=== PATIENT | female | born 1985 | race Hispanic/Latino ===

== ENCOUNTER 2018-08-25 12:36 | Inpatient (IN) | payer BC ==
[2018-08-25] MEDS ORDERED: Sodium Chloride 0.9% 1,000 ML IV STA (13:13)
[2018-08-25] MEDS ORDERED: DiphenhydrAMINE 50 mg/ml Inj IV STA (13:24)
--- NOTE | 2018-08-25 13:28 | ED PDOC ---
HPI: Abdomen Time Seen by Provider: 08/25/18 13:10 Chief Complaint (Nursing): Abdominal Pain Chief Complaint (Provider): Abd pain History Per: Patient History/Exam Limitations: no limitations Onset/Duration Of Symptoms: Days (3) Additional Complaint(s): Pt. with abdominal pain epigastric. States it feels like her esophageal spasms. Nausea, vomit, nonbloody with it. No lower abd pain, back pain, chest pain, dyspnea, diarrhea, weakness, headaches. No dizziness. New to the area and has no pcp. Had botox injections to her esophagus and dilation of it from her GI doctor in [place]. Takes multiple meds for her symptoms at home. Benadryl, nusenta, zofran, seroquel, lexapro. States dilaudid, benadryl, and zofran together work when she gets flair ups. Past Medical History Reviewed: Nursing Documentation, Vital Signs Vital Signs: Last Vital Signs Temp 98.3 F 08/25/18 13:05 Pulse 107 H 08/25/18 13:05 Resp 20 08/25/18 13:05 BP 125/82 08/25/18 13:05 Pulse Ox 100 08/25/18 13:05 - Medical History PMH: Pancreatitis Other PMH: biliary disease; esophageal spasms - Surgical History Surgical History: Endoscopy Other surgeries: esophageal dilation and botox injections to it - Family History Family History: States: Unknown Family Hx - Living Arrangements Living Arrangements: With Family - Allergies Allergies/Adverse Reactions: Allergies Allergy/AdvReac Type Severity Reaction Status Date / Time metoclopramide [From Reglan] Allergy RASH Verified 08/25/18 13:05 moxifloxacin [From Avelox] Allergy RASH Verified 08/25/18 13:05 nitrofurantoin Allergy RASH Verified 08/25/18 13:05 Penicillins Allergy SWELLING Verified 08/25/18 13:05 prochlorperazine Allergy RASH Verified 08/25/18 13:05 [From Compazine] Sulfa (Sulfonamide Allergy RASH Verified 08/25/18 13:05 Antibiotics) Review of Systems ROS Statement: Except As Marked, All Systems Reviewed And Found Negative Gastrointestinal: Positive for: Nausea, Vomiting, Abdominal Pain Physical Exam - Reviewed Nursing Documentation Reviewed: Yes Vital Signs Reviewed: Yes - Physical Exam Appears: Positive for: Non-toxic, No Acute Distress Head Exam: Positive for: ATRAUMATIC, NORMAL INSPECTION, NORMOCEPHALIC Skin: Positive for: Normal Color, Warm, DRY Eye Exam: Positive for: EOMI, Normal appearance, PERRL ENT: Positive for: Normal ENT Inspection Neck: Positive for: Normal, Painless ROM Cardiovascular/Chest: Positive for: Regular Rate, Rhythm Respiratory: Positive for: CNT, Normal Breath Sounds Gastrointestinal/Abdominal: Positive for: Soft, Tenderness (epigastric) Back: Positive for: Normal Inspection. Negative for: L CVA Tenderness, R CVA Tenderness Extremity: Positive for: Normal ROM. Negative for: Tenderness Neurologic/Psych: Positive for: Alert, Oriented - Laboratory Results Result Diagrams: 08/25/18 13:50 08/25/18 13:50 Interpretation Of Abn Labs: no acute - ECG O2 Sat by Pulse Oximetry: 100 Pulse Ox Interpretation: Normal - Progress ED Course And Treament: 1448: Dr. Tiwari to take over care. Fu on ct. Disposition - Clinical Impression Clinical Impression: Abdominal pain - Patient ED Disposition Is Patient to be Admitted: Transfer of Care - Disposition Disposition: Transfer of Care Disposition Time: 14:48 Condition: STABLE Patient Signed Over To: Dianelys Tiwari
[2018-08-25] MEDS ORDERED: DiphenhydrAMINE 50 mg/ml Inj ONE (13:55)
[2018-08-25 14:03] LABS: BASO % 0.7 % (0.0-2.0); HEMOGLOBIN 14.6 g/dL (12.0-16.0); LYMPH # 2.3 K/uL (1.0-4.3); LYMPH % 31.7 % (20.0-40.0); MEAN CELL VOLUME 85.2 fl (81.0-99.0); MEAN CORPUSCULAR HEMOGLOBIN 30.1 pg (27.0-31.0); MEAN CORPUSCULAR HGB CONC 35.4 g/dL (33.0-37.0); MONO # 0.4 K/uL (0.0-0.8); MONO % 5.5 % (0.0-10.0); NEUT # 4.4 K/uL (1.8-7.0); NEUT % 62.1 % (50.0-75.0); NRBC % 0.3 % (0.0-0.0); RBC 4.85 Mil/uL (3.80-5.20); WHITE BLOOD COUNT 7.2 K/uL (4.8-10.8)
[2018-08-25 14:08] LABS: ALB/GLOB RATIO 1.2 (1.0-2.1); ALBUMIN 4.6 g/dL (3.5-5.0); ALT/SGPT 45 U/L (9-52); AST/SGOT 28 U/L (14-36); BLOOD UREA NITROGEN 15 mg/dl (7-17); CALCIUM 10.5 mg/dL (8.4-10.2); GFR NON-AFRICAN AMERICAN > 60; LIPASE 131 U/L (23-300)
[2018-08-25 14:13] LABS: INR 1.1; PROTHROMBIN TIME 12.1 Seconds (9.8-13.1)
[2018-08-25 14:16] LABS: PARTIAL THROMBOPLASTIN TIME 34.3 Seconds (25.6-37.1)
--- NOTE | 2018-08-25 15:19 | ED PDOC ---
- Laboratory Results Result Diagrams: 08/25/18 13:50 08/25/18 13:50 - ECG O2 Sat by Pulse Oximetry: 100 Medical Decision Making Medical Decision Making: Time: 15:00 Patient was endorsed to me by Dr. Maguire. Follow up for abdominal pain pending CT scan, reassessment and final ER disposition. 330p Pt requesting more medication for pain. Reviewed pt's file with [facility] Narcotic database. Pt has multiple narcotic prescriptions from [place], and appears to follow at with pain management. Last prescribed Nucynta 100mg 180 tablets 08/05/2018. To avoid furthering any dependence on opioids and worsening her general health, will only order non- opioid medications. Advised patient concerning narcotic pain policy as well. Time: 15:[address] FINDINGS: LOWER THORAX: Minimal subsegmental atelectasis in the right middle lobe and right lateral lung base. The visualized left lung is clear. LIVER: Normal in size and diffuse fatty liver. There is homogeneous enhancement. Mild intrahepatic biliary ductal dilatation and mild pneumobilia is likely related to post cholecystectomy status. GALLBLADDER AND BILE DUCTS: Surgically absent. PANCREAS: Normal in size with homogeneous enhancement. No gross lesion or ductal di latation. SPLEEN: Mild splenomegaly. Normal enhancement. ADRENALS: No discrete nodule. KIDNEYS AND URETERS: Normal in size with homogeneous enhancement. No hydronephrosis. No solid mass. VASCULATURE: No aortic aneurysm. BOWEL: Evaluation of the bowel is limited in the absence of oral contrast. There are fluid-filled mildly prominent small-bowel loops. Postsurgical changes in the jejunal loops in the left mid abdomen. There is apparent mild circumferential mural thickening in the descending and sigmoid colon and mild mucosal enhancement and mural thickening in the rectum. No bowel dilatation or obstruction. APPENDIX: Surgically absent. PERITONEUM: No free fluid. No free air. LYMPH NODES: No enlarged lymph nodes. BLADDER: Unremarkable. REPRODUCTIVE: The uterus is surgically absent. BONES: No acute fracture. Mild multilevel degenerative disc disease in the lower thoracic spine. OTHER FINDINGS: None. IMPRESSION: 1. Prominent fluid-filled small bowel loops and apparent mild mural thickening in the descending colon, sigmoid colon and rectum with mild mucosal enhancement nonspecific and could be related to underdistention however acute nonspecific enterocolitis is also a consideration. Please note evaluation of the bowel is limited in the absence of oral contrast. Clinical follow-up is advised. 2. Fatty liver. Mild splenomegaly. Time: 16:[address] العلي from [facility]. Edwin christy patient well. She has a history of intermittent exacerbations of abdominal pain due to complications from previous surgeries as well as severe esophageal spasm. Has attempted different types of pain management modalities, including intrathecal pain pump and esophageal botox. Dr. العلي advises admission for pain management for intractable pain and recommends 1-2 mg of Dilaudid q4-6h. Discussed with Dr. [facility] Dr Heaton Pain management consult. Agrees with IV dilaudid 1mg q6h prn for now. Scribe Attestation: Documented by Hector Hendrickson, acting as a scribe for Dianelys Tiwari MD. Provider Scribe Attestation: All medical record entries made by the Scribe were at my direction and personally dictated by me. I have reviewed the chart and agree that the record accurately reflects my personal performance of the history, physical exam, medical decision making, and the department course for this patient. I have also personally directed, reviewed, and agree with the discharge instructions and disposition. Disposition - Clinical Impression Clinical Impression: Abdominal pain, Intractable vomiting, Esophageal spasm - POA Present On Arrival: None - Disposition Disposition: Hospitalized as Observation Patient Disposition Time: 16:20 Condition: STABLE Forms: [employer] (Amharic)
[2018-08-25] MEDS ORDERED: Sodium Chloride 0.9% 50 ML IV ONE (15:33)
[2018-08-25] MEDS ORDERED: Iohexol 300 100 ML IJ ONE (15:33)
--- NOTE | 2018-08-25 16:20 | CT ---
Date of service: 08/25/2018 PROCEDURE: CT Abdomen and Pelvis with contrast HISTORY: Abdominal pain COMPARISON: None. TECHNIQUE: Contrast dose: Radiation dose: Total exam DLP = 510.42 mGy-cm. This CT exam was performed using one or more of the following dose reduction techniques: Automated exposure control, adjustment of the mA and/or kV according to patient size, and/or use of iterative reconstruction technique. FINDINGS: LOWER THORAX: Minimal subsegmental atelectasis in the right middle lobe and right lateral lung base. The visualized left lung is clear. LIVER: Normal in size and diffuse fatty liver. There is homogeneous enhancement. Mild intrahepatic biliary ductal dilatation and mild pneumobilia is likely related to post cholecystectomy status. GALLBLADDER AND BILE DUCTS: Surgically absent. PANCREAS: Normal in size with homogeneous enhancement. No gross lesion or ductal dilatation. SPLEEN: Mild splenomegaly. Normal enhancement. ADRENALS: No discrete nodule. KIDNEYS AND URETERS: Normal in size with homogeneous enhancement. No hydronephrosis. No solid mass. VASCULATURE: No aortic aneurysm. BOWEL: Evaluation of the bowel is limited in the absence of oral contrast. There are fluid-filled mildly prominent small-bowel loops. Postsurgical changes in the jejunal loops in the left mid abdomen. There is apparent mild circumferential mural thickening in the descending and sigmoid colon and mild mucosal enhancement and mural thickening in the rectum. No bowel dilatation or obstruction. APPENDIX: Surgically absent. PERITONEUM: No free fluid. No free air. LYMPH NODES: No enlarged lymph nodes. BLADDER: Unremarkable. REPRODUCTIVE: The uterus is surgically absent. BONES: No acute fracture. Mild multilevel degenerative disc disease in the lower thoracic spine. OTHER FINDINGS: None. IMPRESSION: 1. Prominent fluid-filled small bowel loops and apparent mild mural thickening in the descending colon, sigmoid colon and rectum with mild mucosal enhancement nonspecific and could be related to underdistention however acute nonspecific enterocolitis is also a consideration. Please note evaluation of the bowel is limited in the absence of oral contrast. Clinical follow-up is advised. 2. Fatty liver. Mild splenomegaly.
[2018-08-25] MEDS: Dextrose 5%/0.45% NS 1,000 ML IV SCH (20:29)
[2018-08-25] MEDS: DiphenhydrAMINE 50 mg/ml Inj IVP PRN (20:30)
[2018-08-26] MEDS: DiphenhydrAMINE 50 mg/ml Inj IVP PRN ×4 (04:17→22:19)
[2018-08-26] MEDS: Dextrose 5%/0.45% NS 1,000 ML IV SCH ×2 (06:20→16:15)
--- NOTE | 2018-08-26 09:27 | CP.PCM.CON ---
History of Present Illness - History of Present Illness History of Present Illness: GI Fellow PGY5 Consult Note This is a 33yF with significant pmhx of gastroparesis, achalasia s/p esophageal botox, dilation, partial heller myotomy, esophageal spasm, intractable N/V, biliary reconstruction after bile leak and complicated cholecystectomy. Pt is presenting with complaints of two days of esophageal spasm and intractable N/V. Pt reports she has lost 10lbs in 1month. She reports 1 day of diarrhea. Denies any sick contacts, abx or travel in the past few months. She had many botox injections and her last session of botox injection in esophagous was one month ago. Pt's private GI doctor in [place] is Dr. Zoë Tomas but she moved to [place] a few months ago and is trying to find a doctor here. She also follows up at pain management in [place] and is on narcotics. She takes zofran daily for nausea and eats small meals, but does have emesis of whole food and bilious gastric contents frequently. Her Heller myotomy was 6yrs ago. ROS: A 12pt ROS was negative except as above PmHx: As stated in HPI PsHx: As stated in HPI SHx; Denies etoh, drugs, tobacco FHx: neg for colon cancer Past Patient History - Past Social History Smoking Status: Never Smoked - CARDIAC Hx Cardiac Disorders: No - PULMONARY Hx Respiratory Disorders: No - NEUROLOGICAL Hx Neurological Disorder: No - HEENT Hx HEENT Problems: No - RENAL Hx Chronic Kidney Disease: No - ENDOCRINE/METABOLIC Hx Endocrine Disorders: (GI hx of biliary disease) - MUSCULOSKELETAL/RHEUMATOLOGICAL Hx Falls: No - GASTROINTESTINAL Hx Pancreatitis: Yes - PSYCHIATRIC Hx Substance Use: No - SURGICAL HISTORY Hx Appendectomy: Yes Hx Section: Yes Hx Cholecystectomy: Yes Hx Hysterectomy: Yes Other/Comment: biliary reconstruction, liver dissection, esophageal sx - ANESTHESIA Hx Anesthesia: Yes Hx Anesthesia Reactions: No Hx Malignant Hyperthermia: No Meds Allergies/Adverse Reactions: Allergies Allergy/AdvReac Type Severity Reaction Status Date / Time metoclopramide [From Reglan] Allergy RASH Verified 08/25/18 13:05 moxifloxacin [From Avelox] Allergy RASH Verified 08/25/18 13:05 nitrofurantoin Allergy RASH Verified 08/25/18 13:05 Penicillins Allergy SWELLING Verified 08/25/18 13:05 prochlorperazine Allergy RASH Verified 08/25/18 13:05 [From Compazine] Sulfa (Sulfonamide Allergy RASH Verified 08/25/18 13:05 Antibiotics) - Medications Medications: Current Medications Diphenhydramine HCl (Benadryl) 25 mg IVP Q6 PRN PRN Reason: itchiness Last Admin: 08/26/18 04:17 Dose: 25 mg Hydromorphone HCl (Dilaudid) 1 mg IV Q4 PRN PRN Reason: Pain, severe (8-10) Dextrose/Sodium Chloride (Dextrose 5%/0.45% Ns 1000 Ml) 1,000 mls @ 90 mls/hr IV .Q11H7M [facility] Stop: 08/26/18 18:59 Last Admin: 08/26/18 06:20 Dose: 90 mls/hr Ondansetron HCl (Zofran Inj) 4 mg IVP Q4 PRN PRN Reason: Nausea/Vomiting Last Admin: 08/26/18 09:01 Dose: 4 mg Pantoprazole Sodium (Protonix Inj) 40 mg IVP DAILY [facility] Last Admin: 08/26/18 08:57 Dose: 40 mg Physical Exam - Constitutional Appears: Non-toxic, No Acute Distress - Head Exam Head Exam: ATRAUMATIC, NORMAL INSPECTION, NORMOCEPHALIC - Eye Exam Eye Exam: EOMI, Normal appearance, PERRL Pupil Exam: PERRL - ENT Exam ENT Exam: Mucous Membranes Moist - Neck Exam Neck exam: Positive for: Full Rom, Normal Inspection - Respiratory Exam Respiratory Exam: Clear to Auscultation Bilateral, NORMAL BREATHING PATTERN - Cardiovascular Exam Cardiovascular Exam: RRR, +S1, +S2 - GI/Abdominal Exam GI & Abdominal Exam: Normal Bowel Sounds, Soft, Tenderness. absent: Distended, Firm, Guarding, Organomegaly Additional comments: large surgical scars - Extremities Exam Extremities exam: Positive for: full ROM, normal inspection - Back Exam Back exam: NORMAL INSPECTION - Neurological Exam Neurological exam: Alert, Oriented x3 - Psychiatric Exam Psychiatric exam: Normal Affect, Normal Mood - Skin Skin Exam: Dry, Intact, Normal Color, Warm Results - Vital Signs Recent Vital Signs: Last Vital Signs Temp 98.2 F 08/26/18 08:07 Pulse 68 08/26/18 08:07 Resp 18 08/26/18 08:07 BP 100/63 08/26/18 08:07 Pulse Ox 98 08/26/18 08:07 - Labs Result Diagrams: 08/25/18 13:50 08/25/18 13:50 Labs: Laboratory Results - last 24 hr 08/25/18 08/25/18 08/25/18 13:50 13:50 13:50 WBC 7.2 RBC 4.85 Hgb 14.6 Hct 41.3 MCV 85.2 MCH 30.1 MCHC 35.4 RDW 13.0 Plt Count 231 MPV 10.0 Neut % (Auto) 62.1 Lymph % (Auto) 31.7 Tama % (Auto) 5.5 Eos % (Auto) 0.0 Baso % (Auto) 0.7 Neut # (Auto) 4.4 Lymph # (Auto) 2.3 Tama # (Auto) 0.4 Eos # (Auto) 0.0 Baso # (Auto) 0.0 PT 12.1 INR 1.1 APTT 34.3 Sodium 142 Potassium 4.5 Chloride 107 Carbon Dioxide 25 Anion Gap 15 BUN 15 Creatinine 0.9 Est GFR ( Amer) > 60 Est GFR (Non-Af Amer) > 60 Random Glucose 91 Calcium 10.5 H Total Bilirubin 1.1 AST 28 ALT 45 Alkaline Phosphatase 146 H Total Protein 8.3 H Albumin 4.6 Globulin 3.7 Albumin/Globulin Ratio 1.2 Lipase 131 Assessment & Plan - Assessment and Plan (Free Text) Assessment: 1. Nausea and Vomiting 2. Hx of esophageal spasm and achalasia 3. Hx of gastroparesis 4. Narcotic use Plan: -Continue supportive care with pain control and anti-emetics -Advance to clear liquid diet -Discontinue Bentyl -CT imaging reviewed with no significant inflammation, normal WBC and afebrile -Pt with chronic esophageal disease, will need outpt followup with myometry, gastric emptying study and possible referral for POEM -Pt with multiple botox sessions which stops working and can develop scar tissue -Further management per pain management doctor in [place] -Pt given contact information for Dr. Moreno
--- NOTE | 2018-08-26 09:56 | CP.PCM.PCO ---
Physician Communication Note - Physician Communication Note Physician Communication Note: Discuss with Dr. Heaton and recommend Dilaudid 1mg Q3H instead of Q4H
--- NOTE | 2018-08-26 16:38 | CP.PCM.HP ---
History of Present Illness - History of Present Illness History of Present Illness: CC: Abdominal pain. 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 Pt described abdominal pain, prominent to epigastric area , constant, sharp, stabbing, aching, severe intensity 9:10, that began 3 days SCREEN HANDLER, worsening on DOA associated to nausea, vomiting x 6 on DOA and diarrhea. Pt on Zofran, Omeprazole with no relief. Worsening symptoms: Esophageal Spasm. Aggravated factor: Food. Pt denied: Fever, chills, urinary symptoms, CP, palpitations, syncope, dizziness, SOB, cough, sick contact, recent travel out of [facility]. CT Abd/Pelv: Prominent fluid filled small bowel loops. Mild thickening descending colon. Present on Admission - Present on Admission Any Indicators Present on Admission: No Review of Systems - Constitutional Constitutional: Weight Loss - EENT Eyes: Other (negative) Ears: Other (negative) Nose/Mouth/Throat: Other (negative) - Cardiovascular Cardiovascular: Other (negative) - Respiratory Respiratory: Other (negative) - Gastrointestinal Gastrointestinal: Abdominal Pain, Diarrhea, Nausea, Vomiting - Genitourinary Genitourinary: Other (negative) - Integumentary Integumentary: Other (negative) - Neurological Neurological: Other (negative) - Psychiatric Psychiatric: Depression - Endocrine Endocrine: Other (negative) - Hematologic/Lymphatic Hematologic: Other (negative) Past Patient History - Past Medical History & Family History Pertinent Family History: Unknown - Past Social History Smoking Status: Never Smoked Alcohol: None Drugs: Denies Home Situation {Lives}: Alone - CARDIAC Hx Cardiac Disorders: No - PULMONARY Hx Respiratory Disorders: No - NEUROLOGICAL Hx Neurological Disorder: No - HEENT Hx HEENT Problems: No - RENAL Hx Chronic Kidney Disease: No - ENDOCRINE/METABOLIC Hx Endocrine Disorders: (GI hx of biliary disease) - HEMATOLOGICAL/ONCOLOGICAL Hx Blood Disorders: No - INTEGUMENTARY Hx Dermatological Problems: No - MUSCULOSKELETAL/RHEUMATOLOGICAL Hx Musculoskeletal Disorders: No Hx Falls: No - GASTROINTESTINAL Hx Gastrointestinal Disorders: Yes Hx Pancreatitis: Yes - GENITOURINARY/GYNECOLOGICAL Hx Genitourinary Disorders: No - PSYCHIATRIC Hx Psychophysiologic Disorder: Yes Hx Depression: Yes Hx Substance Use: No - SURGICAL HISTORY Hx Surgeries: Yes Hx Appendectomy: Yes Hx Section: Yes Hx Cholecystectomy: Yes Hx Hysterectomy: Yes Other/Comment: biliary reconstruction, liver dissection, esophageal sx - ANESTHESIA Hx Anesthesia: Yes Hx Anesthesia Reactions: No Hx Malignant Hyperthermia: No Meds Allergies/Adverse Reactions: Allergies Allergy/AdvReac Type Severity Reaction Status Date / Time metoclopramide [From Reglan] Allergy RASH Verified 08/25/18 13:05 moxifloxacin [From Avelox] Allergy RASH Verified 08/25/18 13:05 nitrofurantoin Allergy RASH Verified 08/25/18 13:05 Penicillins Allergy SWELLING Verified 08/25/18 13:05 prochlorperazine Allergy RASH Verified 08/25/18 13:05 [From Compazine] Sulfa (Sulfonamide Allergy RASH Verified 08/25/18 13:05 Antibiotics) Physical Exam - Constitutional Appears: No Acute Distress - Head Exam Head Exam: NORMAL INSPECTION - Eye Exam Eye Exam: PERRL - ENT Exam ENT Exam: Normal Exam - Neck Exam Neck exam: Positive for: Normal Inspection - Respiratory Exam Respiratory Exam: Clear to Auscultation Bilateral - Cardiovascular Exam Cardiovascular Exam: REGULAR RHYTHM - GI/Abdominal Exam GI & Abdominal Exam: Normal Bowel Sounds, Soft, Tenderness (epigastric) Additional comments: Large surgical scar. - Extremities Exam Extremities exam: Positive for: normal inspection - Back Exam Back exam: NORMAL INSPECTION - Neurological Exam Neurological exam: Alert, Oriented x3 - Psychiatric Exam Psychiatric exam: Normal Mood - Skin Skin Exam: Normal Color, Warm Results - Vital Signs Recent Vital Signs: Last Vital Signs Temp 97.9 F 08/26/18 16:08 Pulse 73 08/26/18 16:08 Resp 18 08/26/18 16:08 BP 119/71 08/26/18 16:08 Pulse Ox 100 08/26/18 16:08 reviewed J.P. - Labs Result Diagrams: 08/31/18 15:32 09/01/18 05:45 Labs: Reviewed J.P. - Imaging and Cardiology CT scan - abdomen Status: Report reviewed by me (PuneetP.) CT scan - pelvis Status: Report reviewed by me (Edmund) Assessment & Plan (1) Abdominal pain Status: Acute Priority: High (2) Gastroparesis Status: Acute (3) Esophageal spasm Status: Acute Priority: High - Assessment and Plan (Free Text) Plan: Fuid IV, Dilaudid, Protonix, Zafran and rest of Tx. GI consult appreciated, Pain management consult. - Date & Time Date: 08/26/18 Time: 11:00
[2018-08-27] MEDS: DiphenhydrAMINE 50 mg/ml Inj IVP PRN ×4 (03:46→22:41)
--- NOTE | 2018-08-27 08:38 | CP.PCM.PN ---
Subjective - Date & Time of Evaluation Date of Evaluation: 08/27/18 Time of Evaluation: 08:30 - Subjective Subjective: Chart reviewed. Patient complains that Dilaudid 1mg is only lasting 1.5-2 hours for her. At home she takes Nucynta 100mg, every 4 hours. She's failed intrathecal pain pump trial. Pain is mainly in the epigastric area. Objective - Vital Signs/Intake and Output Vital Signs (last 24 hours): Temp Pulse Resp BP Pulse Ox 98.4 F 95 H 20 100/62 100 08/27/18 08:03 08/27/18 08:03 08/27/18 08:03 08/27/18 08:03 08/27/18 08:03 - Medications Medications: Current Medications Diphenhydramine HCl (Benadryl) 50 mg IVP Q6 PRN PRN Reason: itchiness Last Admin: 08/27/18 03:46 Dose: 50 mg Escitalopram Oxalate (Lexapro) 5 mg PO HS [facility] Last Admin: 08/26/18 21:05 Dose: Not Given Hydromorphone HCl (Dilaudid) 1.5 mg IVP Q3 PRN PRN Reason: Pain, severe (8-10) Ondansetron HCl (Zofran Inj) 4 mg IVP Q4 PRN PRN Reason: Nausea/Vomiting Last Admin: 08/27/18 03:45 Dose: 4 mg Pantoprazole Sodium (Protonix Inj) 40 mg IVP DAILY [facility] Last Admin: 08/26/18 08:57 Dose: 40 mg Quetiapine Fumarate (Seroquel) 50 mg PO HS [facility] Last Admin: 08/26/18 21:05 Dose: Not Given - Labs Labs: 08/25/18 13:50 08/25/18 13:50 PT 12.1 Seconds (9.8-13.1) 08/25/18 13:50 INR 1.1 08/25/18 13:50 APTT 34.3 Seconds (25.6-37.1) 08/25/18 13:50 - GI/Abdominal Exam GI & Abdominal Exam: Soft, Tenderness Assessment and Plan (1) Abdominal pain Assessment & Plan: 33 yo woman w/ chronic pain, on high dose opioid treatment at home. Dilaudid 1mg IV wasn't sufficient. - increase Dilaudid to 1.5mg q3h PRN - patient may resume Nucynta once discharged Status: Acute
[2018-08-27] MEDS: Dextrose 5%/0.45% NS 1,000 ML IV SCH ×2 (10:15→19:50)
[2018-08-27 10:49] LABS: BLOOD UREA NITROGEN 8 mg/dl (7-17); CALCIUM 10.4 mg/dL (8.4-10.2); GFR NON-AFRICAN AMERICAN > 60
--- NOTE | 2018-08-27 11:14 | CP.PCM.PN ---
Subjective - Date & Time of Evaluation Date of Evaluation: 08/27/18 Time of Evaluation: 09:00 - Subjective Subjective: GI Fellow PGY5 Progress Note Pt seen and evaluated at bedside, pt reports she is still having epigastric pain with esophageal spasm. Not tolerating diet with nausea and retching. Per nursing requesting timed pain medication. ROS: A 12pt ROS was negative except as above. Objective - Vital Signs/Intake and Output Vital Signs (last 24 hours): Temp Pulse Resp BP Pulse Ox 98.4 F 95 H 20 100/62 100 08/27/18 08:03 08/27/18 08:03 08/27/18 08:03 08/27/18 08:03 08/27/18 08:03 - Medications Medications: Current Medications Diphenhydramine HCl (Benadryl) 50 mg IVP Q6 PRN PRN Reason: itchiness Last Admin: 08/27/18 10:34 Dose: 50 mg Escitalopram Oxalate (Lexapro) 5 mg PO HS [facility]AN Last Admin: 08/26/18 21:05 Dose: Not Given Famotidine (Pepcid) 20 mg IVP Q12 [facility] Hydromorphone HCl (Dilaudid) 1.5 mg IVP Q3 PRN PRN Reason: Pain, severe (8-10) Last Admin: 08/27/18 10:16 Dose: 1.5 mg Dextrose/Sodium Chloride (Dextrose 5%/0.45% Ns 1000 Ml) 1,000 mls @ 100 mls/hr IV .Q10H IVAN Stop: 08/28/18 09:30 Last Admin: 08/27/18 10:15 Dose: 100 mls/hr Ondansetron HCl (Zofran Inj) 4 mg IVP Q4 PRN PRN Reason: Nausea/Vomiting Last Admin: 08/27/18 09:28 Dose: 4 mg Quetiapine Fumarate (Seroquel) 50 mg PO HS [facility] Last Admin: 08/26/18 21:05 Dose: Not Given - Labs Labs: 08/25/18 13:50 08/27/18 10:14 PT 12.1 Seconds (9.8-13.1) 08/25/18 13:50 INR 1.1 08/25/18 13:50 APTT 34.3 Seconds (25.6-37.1) 08/25/18 13:50 - Constitutional Appears: Non-toxic, No Acute Distress - Head Exam Head Exam: ATRAUMATIC, NORMAL INSPECTION, NORMOCEPHALIC - Eye Exam Eye Exam: EOMI, Normal appearance, PERRL Pupil Exam: PERRL - ENT Exam ENT Exam: Mucous Membranes Moist - Neck Exam Neck Exam: Full ROM, Normal Inspection - Respiratory Exam Respiratory Exam: Clear to Ausculation Bilateral, NORMAL BREATHING PATTERN - Cardiovascular Exam Cardiovascular Exam: RRR, +S1, +S2 - GI/Abdominal Exam GI & Abdominal Exam: Soft, Tenderness, Normal Bowel Sounds. absent: Distended, Firm, Guarding, Rigid, Organomegaly - Rectal Exam Rectal Exam: Deferred - Extremities Exam Extremities Exam: Full ROM, Normal Inspection - Neurological Exam Neurological Exam: Alert, Awake, Oriented x3 - Psychiatric Exam Psychiatric exam: Normal Affect, Normal Mood - Skin Skin Exam: Dry, Intact, Normal Color, Warm Assessment and Plan - Assessment and Plan (Free Text) Assessment: 1. Nausea and Vomiting 2. Hx of esophageal spasm and achalasia 3. Hx of gastroparesis 4. Narcotic use Plan: -Continue supportive care with pain control and anti-emetics -continue clear liquid diet -Discontinue Bentyl -Start pepcid and dc PPI -CT imaging reviewed with no significant inflammation, normal WBC and afebrile -Pt with chronic esophageal disease, will need outpt followup with myometry, gastric emptying study and possible referral for POEM -Pt with multiple botox sessions which stops working and can develop scar tissue -Further management per pain management doctor -Pt given contact information for Dr. Moreno to followup as an outpt -Please call with any questions or concerns
--- NOTE | 2018-08-27 15:18 | CP.PCM.PN ---
Subjective - Date & Time of Evaluation Date of Evaluation: 08/27/18 - Subjective Subjective: F/U Abdominal pain. Pt c/o of epigastric pain, c/o of itching. Objective - Vital Signs/Intake and Output Vital Signs (last 24 hours): Temp Pulse Resp BP Pulse Ox 98.4 F 95 H 20 100/62 100 08/27/18 08:03 08/27/18 08:03 08/27/18 08:03 08/27/18 08:03 08/27/18 08:03 - Medications Medications: Current Medications Diphenhydramine HCl (Benadryl) 50 mg IVP Q6 PRN PRN Reason: itchiness Last Admin: 08/27/18 10:34 Dose: 50 mg Escitalopram Oxalate (Lexapro) 5 mg PO HS [facility] Last Admin: 08/26/18 21:05 Dose: Not Given Famotidine (Pepcid) 20 mg IVP Q12 IVAN Hydromorphone HCl (Dilaudid) 1.5 mg IVP Q3 PRN PRN Reason: Pain, severe (8-10) Last Admin: 08/27/18 13:20 Dose: 1.5 mg Dextrose/Sodium Chloride (Dextrose 5%/0.45% Ns 1000 Ml) 1,000 mls @ 100 mls/hr IV .Q10H IVAN Stop: 08/28/18 09:30 Last Admin: 08/27/18 10:15 Dose: 100 mls/hr Ondansetron HCl (Zofran Inj) 4 mg IVP Q4 PRN PRN Reason: Nausea/Vomiting Last Admin: 08/27/18 13:25 Dose: 4 mg Quetiapine Fumarate (Seroquel) 50 mg PO HS [facility] Last Admin: 08/26/18 21:05 Dose: Not Given - Labs Labs: 08/25/18 13:50 08/27/18 10:14 PT 12.1 Seconds (9.8-13.1) 08/25/18 13:50 INR 1.1 08/25/18 13:50 APTT 34.3 Seconds (25.6-37.1) 08/25/18 13:50 - Constitutional Appears: No Acute Distress - Head Exam Head Exam: NORMAL INSPECTION - Eye Exam Eye Exam: PERRL - ENT Exam ENT Exam: Normal Exam - Neck Exam Neck Exam: Normal Inspection - Respiratory Exam Respiratory Exam: Clear to Ausculation Bilateral - Cardiovascular Exam Cardiovascular Exam: REGULAR RHYTHM - GI/Abdominal Exam GI & Abdominal Exam: Soft, Tenderness (epigastric), Normal Bowel Sounds Additional comments: Large surgical scar - Extremities Exam Extremities Exam: Normal Inspection - Back Exam Back Exam: NORMAL INSPECTION - Neurological Exam Neurological Exam: Alert, Oriented x3. absent: Motor Sensory Deficit - Psychiatric Exam Psychiatric exam: Normal Mood - Skin Skin Exam: Normal Color, Warm Assessment and Plan (1) Abdominal pain Status: Acute (2) Gastroparesis Status: Acute (3) Esophageal spasm Status: Acute - Assessment and Plan (Free Text) Plan: Continue IV fluid, Dilaudid, Benadril and rest of Tx, f/u GI.
[2018-08-27] MEDS: Trimethobenzamide 200 mg/2 mL Inj IM PRN (19:06)
[2018-08-28] MEDS: DiphenhydrAMINE 50 mg/ml Inj IVP PRN ×3 (05:38→18:10)
[2018-08-28] MEDS: Dextrose 5%/0.45% NS 1,000 ML IV SCH (05:44)
[2018-08-28] MEDS: Trimethobenzamide 200 mg/2 mL Inj IM PRN ×2 (08:53→15:59)
--- NOTE | 2018-08-28 16:55 | CP.PCM.PN ---
Subjective - Date & Time of Evaluation Date of Evaluation: 08/28/18 - Subjective Subjective: F/U Abdominal pain Pt c/o of abdominal pain. Objective - Vital Signs/Intake and Output Vital Signs (last 24 hours): Temp Pulse Resp BP Pulse Ox 98.1 F 71 18 103/70 100 08/28/18 08:10 08/28/18 08:10 08/28/18 08:10 08/28/18 08:10 08/28/18 08:10 - Medications Medications: Current Medications Diphenhydramine HCl (Benadryl) 50 mg IVP Q6 PRN PRN Reason: itchiness Last Admin: 08/28/18 12:00 Dose: 50 mg Escitalopram Oxalate (Lexapro) 5 mg PO HS [facility] Last Admin: 08/27/18 22:34 Dose: Not Given Famotidine (Pepcid) 20 mg IVP Q12 IVAN Last Admin: 08/28/18 08:53 Dose: 20 mg Hydromorphone HCl (Dilaudid) 1.5 mg IVP Q3 PRN PRN Reason: Pain, severe (8-10) Last Admin: 08/28/18 15:00 Dose: 1.5 mg Quetiapine Fumarate (Seroquel) 50 mg PO HS [facility] Last Admin: 08/27/18 22:35 Dose: Not Given Trimethobenzamide HCl (Tigan) 200 mg IM Q6 PRN PRN Reason: Nausea/Vomiting Last Admin: 08/28/18 15:59 Dose: 200 mg - Labs Labs: 08/25/18 13:50 08/27/18 10:14 PT 12.1 Seconds (9.8-13.1) 08/25/18 13:50 INR 1.1 08/25/18 13:50 APTT 34.3 Seconds (25.6-37.1) 08/25/18 13:50 - Constitutional Appears: No Acute Distress - Head Exam Head Exam: NORMAL INSPECTION - Eye Exam Eye Exam: PERRL - ENT Exam ENT Exam: Normal Exam - Neck Exam Neck Exam: Normal Inspection - Respiratory Exam Respiratory Exam: Clear to Ausculation Bilateral - Cardiovascular Exam Cardiovascular Exam: REGULAR RHYTHM - GI/Abdominal Exam GI & Abdominal Exam: Soft, Tenderness (epigastric ), Normal Bowel Sounds Additional comments: Large surgical scar. - Extremities Exam Extremities Exam: Normal Inspection - Back Exam Back Exam: NORMAL INSPECTION - Neurological Exam Neurological Exam: Alert, Oriented x3. absent: Motor Sensory Deficit - Psychiatric Exam Psychiatric exam: Normal Mood - Skin Skin Exam: Normal Color, Warm Assessment and Plan (1) Abdominal pain Status: Acute (2) Gastroparesis Status: Acute (3) Esophageal spasm Status: Acute - Assessment and Plan (Free Text) Plan: Continue Dilaudid, Benadril, Pepcid and rest of Tx.
[2018-08-29] MEDS: DiphenhydrAMINE 50 mg/ml Inj IVP PRN ×4 (00:46→20:11)
[2018-08-29] MEDS: Trimethobenzamide 200 mg/2 mL Inj IM PRN ×2 (11:55→19:08)
--- NOTE | 2018-08-29 15:35 | CP.PCM.PN ---
Subjective - Date & Time of Evaluation Date of Evaluation: 08/29/18 - Subjective Subjective: F/U Abdominal pain. Pt with abdominal pain, vomited early in AM. Objective - Vital Signs/Intake and Output Vital Signs (last 24 hours): Temp Pulse Resp BP Pulse Ox 98.5 F 80 20 111/77 100 08/29/18 08:26 08/29/18 08:26 08/29/18 08:26 08/29/18 08:26 08/29/18 08:26 - Medications Medications: Current Medications Diphenhydramine HCl (Benadryl) 50 mg IVP Q6 PRN PRN Reason: itchiness Last Admin: 08/29/18 13:18 Dose: 50 mg Escitalopram Oxalate (Lexapro) 5 mg PO HS [facility] Last Admin: 08/28/18 22:48 Dose: Not Given Famotidine (Pepcid) 20 mg IVP Q12 IVAN Last Admin: 08/29/18 09:04 Dose: 20 mg Hydromorphone HCl (Dilaudid) 1.5 mg IVP Q3 PRN PRN Reason: Pain, severe (8-10) Last Admin: 08/29/18 13:17 Dose: 1.5 mg Quetiapine Fumarate (Seroquel) 50 mg PO HS [facility] Last Admin: 08/28/18 22:48 Dose: Not Given Trimethobenzamide HCl (Tigan) 200 mg IM Q6 PRN PRN Reason: Nausea/Vomiting Last Admin: 08/29/18 11:55 Dose: 200 mg - Labs Labs: 08/25/18 13:50 08/27/18 10:14 PT 12.1 Seconds (9.8-13.1) 08/25/18 13:50 INR 1.1 08/25/18 13:50 APTT 34.3 Seconds (25.6-37.1) 08/25/18 13:50 - Constitutional Appears: No Acute Distress - Head Exam Head Exam: NORMAL INSPECTION - Eye Exam Eye Exam: PERRL - ENT Exam ENT Exam: Normal Exam - Neck Exam Neck Exam: Normal Inspection - Respiratory Exam Respiratory Exam: Clear to Ausculation Bilateral - Cardiovascular Exam Cardiovascular Exam: REGULAR RHYTHM - GI/Abdominal Exam GI & Abdominal Exam: Soft, Tenderness (epigastric area), Normal Bowel Sounds Additional comments: Large surgical scar - Extremities Exam Extremities Exam: Normal Inspection - Back Exam Back Exam: NORMAL INSPECTION - Neurological Exam Neurological Exam: Alert, Oriented x3. absent: Motor Sensory Deficit - Psychiatric Exam Psychiatric exam: Normal Mood - Skin Skin Exam: Normal Color, Warm Assessment and Plan (1) Abdominal pain Status: Acute (2) Gastroparesis Status: Acute (3) Esophageal spasm Status: Acute - Assessment and Plan (Free Text) Plan: Continue Dilaudid, Tigan, Pepcid and rest of tx.
[2018-08-29] MEDS ORDERED: HYDROmorphone 1 mg/ml ISec IVP ONE (16:50)
[2018-08-30] MEDS: DiphenhydrAMINE 50 mg/ml Inj IVP PRN ×4 (02:13→23:27)
--- NOTE | 2018-08-30 10:27 | CP.PCM.PN ---
Subjective - Date & Time of Evaluation Date of Evaluation: 08/30/18 Time of Evaluation: 09:00 - Subjective Subjective: GI Fellow PGY5 Progress Note Pt seen and evaluated at bedside, pt reports she is still having esophageal spasm. Not tolerating much of the liquid diet. Nausea better with tigan. Per nursing requesting timed pain medication. ROS: A 12pt ROS was negative except as above. Objective - Vital Signs/Intake and Output Vital Signs (last 24 hours): Temp Pulse Resp BP Pulse Ox 98.5 F 65 20 101/70 99 08/30/18 08:13 08/30/18 08:13 08/30/18 08:13 08/30/18 08:13 08/30/18 08:13 - Medications Medications: Current Medications Diphenhydramine HCl (Benadryl) 50 mg IVP Q6 PRN PRN Reason: itchiness Last Admin: 08/30/18 08:35 Dose: 50 mg Escitalopram Oxalate (Lexapro) 5 mg PO HS [facility] Last Admin: 08/29/18 22:07 Dose: Not Given Famotidine (Pepcid) 20 mg IVP Q12 IVAN Last Admin: 08/30/18 09:19 Dose: 20 mg Hydromorphone HCl (Dilaudid) 1.5 mg IVP Q3 PRN PRN Reason: Pain, severe (8-10) Last Admin: 08/30/18 08:32 Dose: 1.5 mg Quetiapine Fumarate (Seroquel) 50 mg PO HS [facility]AN Last Admin: 08/29/18 22:08 Dose: Not Given Trimethobenzamide HCl (Tigan) 200 mg IM Q6 PRN PRN Reason: Nausea/Vomiting Last Admin: 08/29/18 19:08 Dose: 200 mg - Labs Labs: 08/25/18 13:50 08/27/18 10:14 PT 12.1 Seconds (9.8-13.1) 08/25/18 13:50 INR 1.1 08/25/18 13:50 APTT 34.3 Seconds (25.6-37.1) 08/25/18 13:50 - Constitutional Appears: Non-toxic, No Acute Distress - Head Exam Head Exam: ATRAUMATIC, NORMAL INSPECTION, NORMOCEPHALIC - Eye Exam Eye Exam: EOMI, Normal appearance, PERRL Pupil Exam: PERRL - ENT Exam ENT Exam: Mucous Membranes Dry - Neck Exam Neck Exam: Full ROM, Normal Inspection - Respiratory Exam Respiratory Exam: Clear to Ausculation Bilateral, NORMAL BREATHING PATTERN - Cardiovascular Exam Cardiovascular Exam: REGULAR RHYTHM, RRR, +S1, +S2 - GI/Abdominal Exam GI & Abdominal Exam: Soft, Normal Bowel Sounds. absent: Distended, Firm, Guarding, Tenderness - Rectal Exam Rectal Exam: Deferred - Extremities Exam Extremities Exam: Full ROM, Normal Inspection - Neurological Exam Neurological Exam: Alert, Awake, Oriented x3 - Psychiatric Exam Psychiatric exam: Normal Affect, Normal Mood - Skin Skin Exam: Dry, Intact, Normal Color, Warm Assessment and Plan - Assessment and Plan (Free Text) Assessment: 1. Nausea and Vomiting 2. Hx of esophageal spasm and achalasia 3. Hx of gastroparesis 4. Narcotic use Plan: -Continue supportive care with pain control and anti-emetics -On full liquid diet -Discontinue Bentyl -Tolerating Tigan -CT imaging reviewed with no significant inflammation, normal WBC and afebrile -Pt with chronic esophageal disease, will need outpt followup with myometry, gastric emptying study and possible referral for POEM -Pt with multiple botox sessions which stops working and can develop scar tissue -Further management per pain management doctor -Pt given contact information for Dr. Moreno -Pt will need to be transitioned to her po pain mediations prior to discharge and tolerating liquids -Please call with any questions or concerns
[2018-08-30] MEDS: Trimethobenzamide 200 mg/2 mL Inj IM PRN ×2 (11:29→18:01)
[2018-08-30 12:55] LABS: HEMOGLOBIN 14.3 g/dL (12.0-16.0); MEAN CORPUSCULAR HEMOGLOBIN 30.3 pg (27.0-31.0); MEAN CORPUSCULAR HGB CONC 35.6 g/dL (33.0-37.0); RBC 4.73 Mil/uL (3.80-5.20); WHITE BLOOD COUNT 4.7 K/uL (4.8-10.8)
[2018-08-30 13:04] LABS: BLOOD UREA NITROGEN 8 mg/dl (7-17); CALCIUM 9.6 mg/dL (8.4-10.2); GFR NON-AFRICAN AMERICAN > 60
--- NOTE | 2018-08-30 18:06 | CP.PCM.PN ---
Subjective - Date & Time of Evaluation Date of Evaluation: 08/30/18 Time of Evaluation: 10:00 - Subjective Subjective: F/U Abdominal pain. Pt awake, c/o of abdominal pain Objective - Vital Signs/Intake and Output Vital Signs (last 24 hours): Temp Pulse Resp BP Pulse Ox 98.1 F 73 18 102/68 99 08/30/18 16:19 08/30/18 16:19 08/30/18 16:19 08/30/18 16:19 08/30/18 16:19 - Medications Medications: Current Medications Diphenhydramine HCl (Benadryl) 50 mg IVP Q6 PRN PRN Reason: itchiness Last Admin: 08/30/18 16:14 Dose: 50 mg Escitalopram Oxalate (Lexapro) 5 mg PO HS [facility] Last Admin: 08/29/18 22:07 Dose: Not Given Famotidine (Pepcid) 20 mg IVP Q12 IVAN Last Admin: 08/30/18 09:19 Dose: 20 mg Hydromorphone HCl (Dilaudid) 1 mg IVP Q4 PRN PRN Reason: Pain, severe (8-10) Last Admin: 08/30/18 16:11 Dose: 1 mg Quetiapine Fumarate (Seroquel) 50 mg PO HS [facility] Last Admin: 08/29/18 22:08 Dose: Not Given Trimethobenzamide HCl (Tigan) 200 mg IM Q6 PRN PRN Reason: Nausea/Vomiting Last Admin: 08/30/18 18:01 Dose: 200 mg - Labs Labs: 08/30/18 12:45 08/30/18 12:45 PT 12.1 Seconds (9.8-13.1) 08/25/18 13:50 INR 1.1 08/25/18 13:50 APTT 34.3 Seconds (25.6-37.1) 08/25/18 13:50 - Constitutional Appears: No Acute Distress - Head Exam Head Exam: NORMAL INSPECTION - Eye Exam Eye Exam: PERRL - ENT Exam ENT Exam: Normal Exam - Neck Exam Neck Exam: Normal Inspection - Respiratory Exam Respiratory Exam: Clear to Ausculation Bilateral - Cardiovascular Exam Cardiovascular Exam: REGULAR RHYTHM - GI/Abdominal Exam GI & Abdominal Exam: Soft, Tenderness (epigastric area), Normal Bowel Sounds. absent: Guarding, Rebound Additional comments: Large surgical scar - Extremities Exam Extremities Exam: Normal Inspection - Back Exam Back Exam: NORMAL INSPECTION - Neurological Exam Neurological Exam: Alert, Oriented x3. absent: Motor Sensory Deficit - Psychiatric Exam Psychiatric exam: Normal Mood - Skin Skin Exam: Normal Color, Warm Assessment and Plan (1) Abdominal pain Status: Acute (2) Gastroparesis Status: Acute (3) Esophageal spasm Status: Acute - Assessment and Plan (Free Text) Plan: F/U GI, Continue IV fluid, Dilaudid and rest of Tx.
[2018-08-31] MEDS: DiphenhydrAMINE 50 mg/ml Inj IVP PRN ×3 (06:03→17:50)
--- NOTE | 2018-08-31 10:36 | CP.PCM.PN ---
Subjective - Date & Time of Evaluation Date of Evaluation: 08/31/18 Time of Evaluation: 09:00 - Subjective Subjective: GI Fellow PGY5 Progress Note Pt seen and evaluated at bedside, pt reports she is still having pain. Not tolerating liquid diet. Nausea better with tigan. Per nursing requesting timed pain medication with benadryl. ROS: A 12pt ROS was negative except as above. Objective - Vital Signs/Intake and Output Vital Signs (last 24 hours): Temp Pulse Resp BP Pulse Ox 97.7 F 69 18 109/73 100 08/31/18 08:18 08/31/18 08:18 08/31/18 08:18 08/31/18 08:18 08/31/18 08:18 - Medications Medications: Current Medications Diphenhydramine HCl (Benadryl) 50 mg IVP Q6 PRN PRN Reason: itchiness Last Admin: 08/31/18 06:03 Dose: 50 mg Escitalopram Oxalate (Lexapro) 5 mg PO HS [facility] Last Admin: 08/30/18 22:44 Dose: Not Given Famotidine (Pepcid) 20 mg IVP Q12 IVAN Last Admin: 08/31/18 09:11 Dose: 20 mg Hydromorphone HCl (Dilaudid) 1 mg IVP Q4 PRN PRN Reason: Pain, severe (8-10) Last Admin: 08/31/18 09:22 Dose: 1 mg Quetiapine Fumarate (Seroquel) 50 mg PO HS [facility] Last Admin: 08/30/18 22:44 Dose: Not Given Trimethobenzamide HCl (Tigan) 200 mg IM Q6 PRN PRN Reason: Nausea/Vomiting Last Admin: 08/30/18 18:01 Dose: 200 mg - Labs Labs: 08/30/18 12:45 08/30/18 12:45 PT 12.1 Seconds (9.8-13.1) 08/25/18 13:50 INR 1.1 08/25/18 13:50 APTT 34.3 Seconds (25.6-37.1) 08/25/18 13:50 - Constitutional Appears: Non-toxic, No Acute Distress - Head Exam Head Exam: ATRAUMATIC, NORMAL INSPECTION, NORMOCEPHALIC - Eye Exam Eye Exam: EOMI, Normal appearance, PERRL Pupil Exam: PERRL - ENT Exam ENT Exam: Mucous Membranes Moist - Neck Exam Neck Exam: Full ROM, Normal Inspection - Respiratory Exam Respiratory Exam: Clear to Ausculation Bilateral, NORMAL BREATHING PATTERN - Cardiovascular Exam Cardiovascular Exam: RRR, +S1, +S2 - GI/Abdominal Exam GI & Abdominal Exam: Soft, Tenderness, Normal Bowel Sounds. absent: Distended, Guarding, Organomegaly - Extremities Exam Extremities Exam: Full ROM. absent: Pedal Edema - Neurological Exam Neurological Exam: Alert, Awake, Oriented x3 - Psychiatric Exam Psychiatric exam: Normal Affect, Normal Mood - Skin Skin Exam: Dry, Intact, Normal Color, Warm Assessment and Plan - Assessment and Plan (Free Text) Assessment: 1. Nausea and Vomiting 2. Hx of esophageal spasm and achalasia 3. Hx of gastroparesis 4. Narcotic dependence Plan: -Continue supportive care with pain control and anti-emetics -On full liquid diet but per pt is not tolerating -Discontinue Bentyl -Tolerating Tigan -CT imaging reviewed with no significant inflammation, normal WBC and afebrile -Pt with chronic esophageal disease, will need outpt followup with myometry, gastric emptying study and possible referral for POEM -Pt with multiple botox sessions which stops working and can develop scar tissue -Pt needs to be transitioned to her po pain mediations and discontinue IV opioids which can worsen gastroparesis and nausea -If pt is still unable to eat by tomorrow will discuss about possible peg for severe gastroparesis -Gastric emptying study pending, was ordered by primary team -Please call with any questions or concerns
[2018-08-31] MEDS: Trimethobenzamide 200 mg/2 mL Inj IM PRN (11:30)
[2018-08-31 13:20] VITALS: BMI 23.7
[2018-08-31] MEDS ORDERED: Lidocaine 2% GEL TOP ONE (13:53)
[2018-08-31] MEDS ORDERED: Home Med 1 UNIT NG PRN (14:51)
--- NOTE | 2018-08-31 15:08 | CP.PCM.PN ---
Subjective - Date & Time of Evaluation Date of Evaluation: 08/31/18 Time of Evaluation: 12:30 - Subjective Subjective: F/U Abdominal pain/ Gastroparesis. As per nurse, Pt vomiting earlier today, unable to do gastric emptying study Objective - Vital Signs/Intake and Output Vital Signs (last 24 hours): Temp Pulse Resp BP Pulse Ox 97.7 F 69 18 109/73 100 08/31/18 08:18 08/31/18 08:18 08/31/18 08:18 08/31/18 08:18 08/31/18 08:18 - Medications Medications: Current Medications Diphenhydramine HCl (Benadryl) 50 mg IVP Q6 PRN PRN Reason: itchiness Last Admin: 08/31/18 12:05 Dose: 50 mg Escitalopram Oxalate (Lexapro) 5 mg PO HS [facility] Last Admin: 08/30/18 22:44 Dose: Not Given Famotidine (Pepcid) 20 mg IVP Q12 [facility] Last Admin: 08/31/18 09:11 Dose: 20 mg Home Med (Home Med) 1 unit NG Q4H PRN PRN Reason: Pain, moderate (4-7) Quetiapine Fumarate (Seroquel) 50 mg PO [facility] Last Admin: 08/30/18 22:44 Dose: Not Given Trimethobenzamide HCl (Tigan) 200 mg IM Q6 PRN PRN Reason: Nausea/Vomiting Last Admin: 08/31/18 11:30 Dose: 200 mg - Labs Labs: 08/30/18 12:45 08/30/18 12:45 PT 12.1 Seconds (9.8-13.1) 08/25/18 13:50 INR 1.1 08/25/18 13:50 APTT 34.3 Seconds (25.6-37.1) 08/25/18 13:50 - Constitutional Appears: No Acute Distress - Head Exam Head Exam: NORMAL INSPECTION - Eye Exam Eye Exam: PERRL - ENT Exam ENT Exam: Normal Exam - Neck Exam Neck Exam: Normal Inspection - Respiratory Exam Respiratory Exam: Clear to Ausculation Bilateral - Cardiovascular Exam Cardiovascular Exam: REGULAR RHYTHM - GI/Abdominal Exam GI & Abdominal Exam: Soft, Tenderness (epigastric area) Additional comments: Large surgical scar - Extremities Exam Extremities Exam: Normal Inspection - Back Exam Back Exam: NORMAL INSPECTION - Neurological Exam Neurological Exam: Alert, Oriented x3. absent: Motor Sensory Deficit - Psychiatric Exam Psychiatric exam: Normal Mood - Skin Skin Exam: Normal Color, Warm Assessment and Plan (1) Abdominal pain Status: Acute (2) Gastroparesis Status: Acute (3) Esophageal spasm Status: Acute - Assessment and Plan (Free Text) Plan: Keep in clear fluid, Pt refused NG tube but there after states she will agree to have it. Attempt to switch to Nucynta and DC Dilaudid IV.
--- NOTE | 2018-08-31 15:08 | RAD ---
Date of service: 08/31/2018 HISTORY: s/p ngt- placement COMPARISON: No prior. FINDINGS: LUNGS: The lungs are well inflated and clear. PLEURA: No pleural effusions or pneumothorax. CARDIOVASCULAR: The heart is normal in size. No aortic atherosclerotic calcification present. OSSEOUS STRUCTURES: Within normal limits for the patient's age. VISUALIZED UPPER ABDOMEN: Normal. OTHER FINDINGS: The nasogastric tube terminates in the stomach. IMPRESSION: Nasogastric tube terminates in the stomach. No acute findings.
[2018-08-31 15:47] LABS: HEMOGLOBIN 14.4 g/dL (12.0-16.0); MEAN CELL VOLUME 84.1 fl (81.0-99.0); MEAN CORPUSCULAR HEMOGLOBIN 30.2 pg (27.0-31.0); MEAN CORPUSCULAR HGB CONC 35.9 g/dL (33.0-37.0); RBC 4.76 Mil/uL (3.80-5.20); RED CELL DISTRIBUTION WIDTH 13.1 % (11.5-14.5); WHITE BLOOD COUNT 5.2 K/uL (4.8-10.8)
[2018-09-01] MEDS: Trimethobenzamide 200 mg/2 mL Inj IM PRN ×3 (00:05→22:00)
[2018-09-01] MEDS: DiphenhydrAMINE 50 mg/ml Inj IVP PRN ×4 (01:26→19:38)
[2018-09-01 07:17] LABS: BLOOD UREA NITROGEN 6 mg/dl (7-17); CALCIUM 9.7 mg/dL (8.4-10.2); GFR NON-AFRICAN AMERICAN > 60
--- NOTE | 2018-09-01 10:29 | CP.PCM.PN ---
Subjective - Date & Time of Evaluation Date of Evaluation: 09/01/18 Time of Evaluation: 10:10 - Subjective Subjective: Chart reviewed. Patient is still not able to tolerate diet or even PO meds. Staff is concerned about around the clock IV pain medication. Nucynta cannot be crushed and given through NGT, will substitute with Dilaudid PO instead. Patient understands that she clinically improves, she needs to follow up with GI for referral with specialist for potential intervention. Objective - Vital Signs/Intake and Output Vital Signs (last 24 hours): Temp Pulse Resp BP Pulse Ox 97.9 F 83 20 94/63 L 99 09/01/18 08:31 09/01/18 08:31 09/01/18 08:31 09/01/18 08:31 09/01/18 08:31 - Medications Medications: Current Medications Diphenhydramine HCl (Benadryl) 50 mg IVP Q6 PRN PRN Reason: itchiness Last Admin: 09/01/18 07:45 Dose: 50 mg Escitalopram Oxalate (Lexapro) 5 mg PO HS [facility] Last Admin: 08/31/18 22:12 Dose: Not Given Famotidine (Pepcid) 20 mg IVP Q12 [facility] Last Admin: 09/01/18 10:19 Dose: 20 mg Home Med (Home Med) 1 unit NG Q4H PRN PRN Reason: Pain, moderate (4-7) Hydromorphone HCl (Dilaudid) 1 mg IVP Q4 PRN PRN Reason: Pain, severe (8-10) Last Admin: 09/01/18 07:45 Dose: 1 mg Hydromorphone HCl (Dilaudid) 4 mg PO Q4 PRN PRN Reason: Pain, severe (8-10) Quetiapine Fumarate (Seroquel) 50 mg PO HS [facility] Last Admin: 08/31/18 22:13 Dose: Not Given Trimethobenzamide HCl (Tigan) 200 mg IM Q6 PRN PRN Reason: Nausea/Vomiting Last Admin: 09/01/18 00:05 Dose: 200 mg - Labs Labs: 08/31/18 15:32 09/01/18 05:45 PT 12.1 Seconds (9.8-13.1) 08/25/18 13:50 INR 1.1 08/25/18 13:50 APTT 34.3 Seconds (25.6-37.1) 08/25/18 13:50 - GI/Abdominal Exam GI & Abdominal Exam: Soft, Tenderness Assessment and Plan (1) Abdominal pain Assessment & Plan: 33 yo woman w/ esophageal stricture, chronic pain. - Dilaudid 4mg PO crushed via NGT - keep Dilaudid 1mg IV for now for severe breakthrough - GI recommendation Status: Acute
--- NOTE | 2018-09-01 10:41 | CP.PCM.PN ---
Subjective - Date & Time of Evaluation Date of Evaluation: 09/01/18 Time of Evaluation: 09:00 - Subjective Subjective: GI Fellow PGY5 Progress Note Pt seen and evaluated at bedside, NGT in place tolerating ensure clears. Pain med unable to be crushed via NGT so still on IV pain meds. ROS: A 12pt ROS was negative except as above. Objective - Vital Signs/Intake and Output Vital Signs (last 24 hours): Temp Pulse Resp BP Pulse Ox 97.9 F 83 20 94/63 L 99 09/01/18 08:31 09/01/18 08:31 09/01/18 08:31 09/01/18 08:31 09/01/18 08:31 - Medications Medications: Current Medications Diphenhydramine HCl (Benadryl) 50 mg IVP Q6 PRN PRN Reason: itchiness Last Admin: 09/01/18 07:45 Dose: 50 mg Escitalopram Oxalate (Lexapro) 5 mg PO [facility] Last Admin: 08/31/18 22:12 Dose: Not Given Famotidine (Pepcid) 20 mg IVP Q12 [facility] Last Admin: 09/01/18 10:19 Dose: 20 mg Home Med (Home Med) 1 unit NG Q4H PRN PRN Reason: Pain, moderate (4-7) Hydromorphone HCl (Dilaudid) 1 mg IVP Q4 PRN PRN Reason: Pain, severe (8-10) Last Admin: 09/01/18 07:45 Dose: 1 mg Hydromorphone HCl (Dilaudid) 4 mg PO Q4 PRN PRN Reason: Pain, severe (8-10) Quetiapine Fumarate (Seroquel) 50 mg PO [facility] Last Admin: 08/31/18 22:13 Dose: Not Given Trimethobenzamide HCl (Tigan) 200 mg IM Q6 PRN PRN Reason: Nausea/Vomiting Last Admin: 09/01/18 00:05 Dose: 200 mg - Labs Labs: 08/31/18 15:32 09/01/18 05:45 PT 12.1 Seconds (9.8-13.1) 08/25/18 13:50 INR 1.1 08/25/18 13:50 APTT 34.3 Seconds (25.6-37.1) 08/25/18 13:50 - Constitutional Appears: Non-toxic, No Acute Distress - Head Exam Head Exam: ATRAUMATIC, NORMAL INSPECTION, NORMOCEPHALIC - Eye Exam Eye Exam: EOMI, Normal appearance, PERRL Pupil Exam: PERRL - ENT Exam ENT Exam: Mucous Membranes Dry - Neck Exam Neck Exam: Full ROM, Normal Inspection - Respiratory Exam Respiratory Exam: Clear to Ausculation Bilateral - Cardiovascular Exam Cardiovascular Exam: REGULAR RHYTHM, RRR, +S1, +S2 - GI/Abdominal Exam GI & Abdominal Exam: Soft, Normal Bowel Sounds. absent: Firm, Tenderness - Extremities Exam Extremities Exam: Full ROM, Normal Inspection - Neurological Exam Neurological Exam: Alert, Awake, Oriented x3 - Psychiatric Exam Psychiatric exam: Normal Affect, Normal Mood - Skin Skin Exam: Normal Color, Warm Assessment and Plan - Assessment and Plan (Free Text) Assessment: 1. Nausea and Vomiting 2. Hx of esophageal spasm and achalasia 3. Hx of gastroparesis 4. Narcotic dependence Plan: -Continue supportive care with pain control and anti-emetics -s/p NGT -On clear liquid diet via NGT, can advance diet for lunch per nutrition -Pt with chronic esophageal disease, will need outpt followup with myometry, gastric emptying study and possible referral for POEM -Pt with multiple botox sessions which stops working and can develop scar tissue -Pt needs to be transitioned to her po pain mediations and discontinue IV opioids which can worsen gastroparesis and nausea -Plan to transition to po meds today and advance diet to take out NGT by tomorrow -If pt is still unable to eat will need peg for severe gastroparesis, this was discussed with pt and mother at bedside -Plan was discussed with primary team as well -Please call with any questions or concerns
[2018-09-01 16:06] VITALS: RESP 18
--- NOTE | 2018-09-01 16:34 | CP.PCM.PN ---
Subjective - Date & Time of Evaluation Date of Evaluation: 09/01/18 Time of Evaluation: 09:40 - Subjective Subjective: F/U Abdominal pain Pt c/o of epigastric pain. Pt with NGT placed. Objective - Vital Signs/Intake and Output Vital Signs (last 24 hours): Temp Pulse Resp BP Pulse Ox 97.9 F 93 H 18 103/72 100 09/01/18 16:05 09/01/18 16:05 09/01/18 16:05 09/01/18 16:05 09/01/18 16:05 - Medications Medications: Current Medications Diphenhydramine HCl (Benadryl) 50 mg IVP Q6 PRN PRN Reason: itchiness Last Admin: 09/01/18 13:43 Dose: 50 mg Escitalopram Oxalate (Lexapro) 5 mg PO HS [facility] Last Admin: 08/31/18 22:12 Dose: Not Given Famotidine (Pepcid) 20 mg IVP Q12 [facility] Last Admin: 09/01/18 10:19 Dose: 20 mg Hydromorphone HCl (Dilaudid) 1 mg IVP Q4 PRN PRN Reason: Pain, severe (8-10) Last Admin: 09/01/18 11:33 Dose: 1 mg Hydromorphone HCl (Dilaudid) 4 mg PO Q4 PRN PRN Reason: Pain, severe (8-10) Last Admin: 09/01/18 15:42 Dose: 4 mg Quetiapine Fumarate (Seroquel) 50 mg PO HS [facility] Last Admin: 08/31/18 22:13 Dose: Not Given Trimethobenzamide HCl (Tigan) 200 mg IM Q6 PRN PRN Reason: Nausea/Vomiting Last Admin: 09/01/18 11:29 Dose: 200 mg - Labs Labs: 08/31/18 15:32 09/01/18 05:45 PT 12.1 Seconds (9.8-13.1) 08/25/18 13:50 INR 1.1 08/25/18 13:50 APTT 34.3 Seconds (25.6-37.1) 08/25/18 13:50 - Constitutional Appears: No Acute Distress - Head Exam Head Exam: NORMAL INSPECTION - Eye Exam Eye Exam: PERRL - ENT Exam ENT Exam: Normal Exam Additional comments: NGT - Neck Exam Neck Exam: Normal Inspection - Respiratory Exam Respiratory Exam: NORMAL BREATHING PATTERN - Cardiovascular Exam Cardiovascular Exam: REGULAR RHYTHM - GI/Abdominal Exam GI & Abdominal Exam: Soft, Tenderness (epigastric area), Normal Bowel Sounds - Extremities Exam Extremities Exam: Normal Inspection - Back Exam Back Exam: NORMAL INSPECTION - Neurological Exam Neurological Exam: Alert, Oriented x3. absent: Motor Sensory Deficit - Psychiatric Exam Psychiatric exam: Normal Mood - Skin Skin Exam: Normal Color, Warm Assessment and Plan (1) Abdominal pain Status: Acute (2) Gastroparesis Status: Acute (3) Esophageal spasm Status: Acute - Assessment and Plan (Free Text) Plan: Pt is having Ensure, Dilaudid through the NGT for pain, continue rest of Tx.
[2018-09-02] MEDS: DiphenhydrAMINE 50 mg/ml Inj IVP PRN ×2 (07:56→14:43)
[2018-09-02 08:00] VITALS: BP 97/63; PULSE 68; TEMP 98.5; O2SAT 98
--- NOTE | 2018-09-02 10:40 | CP.PCM.PN ---
Subjective - Date & Time of Evaluation Date of Evaluation: 09/02/18 Time of Evaluation: 09:00 - Subjective Subjective: GI Fellow PGY5 Progress Note Pt seen and evaluated at bedside, NGT in place tolerating ensure clears. Pain med via NGT. Pt wants to eat banana and wants NGT removed. +BM two days ago, ROS: A 12pt ROS was negative except as above. Objective - Vital Signs/Intake and Output Vital Signs (last 24 hours): Temp Pulse Resp BP Pulse Ox 98.5 F 68 18 97/63 L 98 09/02/18 07:58 09/02/18 07:58 09/02/18 07:58 09/02/18 07:58 09/02/18 07:58 - Medications Medications: Current Medications Diphenhydramine HCl (Benadryl) 50 mg IVP Q6 PRN PRN Reason: itchiness Last Admin: 09/02/18 07:56 Dose: 50 mg Escitalopram Oxalate (Lexapro) 5 mg PO HS [facility] Last Admin: 09/01/18 22:15 Dose: 5 mg Home Med (Patient's Own Medication) 1 unit PO Q4 PRN PRN Reason: Pain, severe (8-10) Hydromorphone HCl (Dilaudid) 4 mg PO Q4 PRN PRN Reason: Pain, severe (8-10) Last Admin: 09/01/18 15:42 Dose: 4 mg Quetiapine Fumarate (Seroquel) 50 mg PO HS [facility] Last Admin: 09/01/18 22:15 Dose: 50 mg Trimethobenzamide HCl (Tigan) 200 mg IM Q6 PRN PRN Reason: Nausea/Vomiting Last Admin: 09/01/18 22:00 Dose: 200 mg - Labs Labs: 08/31/18 15:32 09/01/18 05:45 PT 12.1 Seconds (9.8-13.1) 08/25/18 13:50 INR 1.1 08/25/18 13:50 APTT 34.3 Seconds (25.6-37.1) 08/25/18 13:50 - Constitutional Appears: Non-toxic, No Acute Distress - Head Exam Head Exam: ATRAUMATIC, NORMAL INSPECTION, NORMOCEPHALIC - Eye Exam Eye Exam: EOMI, Normal appearance, PERRL - ENT Exam ENT Exam: Mucous Membranes Dry - Neck Exam Neck Exam: Full ROM, Normal Inspection - Respiratory Exam Respiratory Exam: Clear to Ausculation Bilateral, NORMAL BREATHING PATTERN - Cardiovascular Exam Cardiovascular Exam: RRR, +S1, +S2 - GI/Abdominal Exam GI & Abdominal Exam: Soft, Normal Bowel Sounds. absent: Distended, Firm, Guarding, Tenderness - Rectal Exam Rectal Exam: Deferred - Extremities Exam Extremities Exam: Full ROM, Normal Inspection - Back Exam Back Exam: NORMAL INSPECTION - Neurological Exam Neurological Exam: Alert, Awake, Oriented x3 - Psychiatric Exam Psychiatric exam: Normal Affect, Normal Mood - Skin Skin Exam: Dry, Intact, Normal Color, Warm Assessment and Plan - Assessment and Plan (Free Text) Assessment: 1. Nausea and Vomiting 2. Hx of esophageal spasm and achalasia 3. Hx of gastroparesis 4. Narcotic dependence Plan: -Continue supportive care with pain control and anti-emetics -Pt ready to eat by mouth so will order NGT to be removed -Can start soft bland diet -Pt needs to be transitioned to her po pain mediations completely prior to di scharge -Pepcid bid po -If pt is still unable to eat will need peg for severe gastroparesis, this was discussed with pt and mother at bedside -Pt with chronic esophageal disease, will need outpt followup with myometry, gastric emptying study and possible referral for POEM -Pt with multiple botox sessions which stops working and can develop scar tissue -Plan was discussed with primary team as well -Please call with any questions or concerns
[2018-09-02] MEDS: Trimethobenzamide 200 mg/2 mL Inj IM PRN (12:00)
--- NOTE | 2018-09-02 14:24 | CP.PCM.PCO ---
Assessment/Plan - Assessment/Plan Assessment (Free Text): NGT d/c'd this am, pt stable. Tolerated a banana and some melany narendra. N/v less. Agreeable to going home and following up with Dr. Moreno on Thursday. Pt request to get one more dose of IV dilaudid and benadryl prior to d/c because she does not want to take PO pain med nd start vomiting in the car. Pt to be monitored 30-45 mins after dilaudid dose prior to discharge. Pt cleared by Dr. Moreno and Dr. Cote for d/c. Pt and RN aware of plan.
--- NOTE | 2018-09-02 17:32 | CP.PCM.DIS ---
Provider - Provider Date of Admission: 08/27/18 11:20 Attending physician: Scottie Cote MD Diagnosis - Discharge Diagnosis (1) Abdominal pain Status: Acute Priority: High (2) Gastroparesis Status: Acute (3) Esophageal spasm Status: Acute Priority: High Hospital Course - Lab Results Lab Results: Most Recent Lab Values WBC 5.2 K/uL (4.8-10.8) 08/31/18 15:32 RBC 4.76 Mil/uL (3.80-5.20) 08/31/18 15:32 Hgb 14.4 g/dL (12.0-16.0) 08/31/18 15:32 Hct 40.0 % (34.0-47.0) 08/31/18 15:32 MCV 84.1 fl (81.0-99.0) 08/31/18 15:32 MCH 30.2 pg (27.0-31.0) 08/31/18 15:32 MCHC 35.9 g/dL (33.0-37.0) 08/31/18 15:32 RDW 13.1 % (11.5-14.5) 08/31/18 15:32 Plt Count 190 K/uL (130-400) 08/31/18 15:32 MPV 10.0 fl (7.2-11.7) 08/25/18 13:50 Neut % (Auto) 62.1 % (50.0-75.0) 08/25/18 13:50 Lymph % (Auto) 31.7 % (20.0-40.0) 08/25/18 13:50 [place] % (Auto) 5.5 % (0.0-10.0) 08/25/18 13:50 Eos % (Auto) 0.0 % (0.0-4.0) 08/25/18 13:50 Baso % (Auto) 0.7 % (0.0-2.0) 08/25/18 13:50 Neut # (Auto) 4.4 K/uL (1.8-7.0) 08/25/18 13:50 Lymph # (Auto) 2.3 K/uL (1.0-4.3) 08/25/18 13:50 [place] # (Auto) 0.4 K/uL (0.0-0.8) 08/25/18 13:50 Eos # (Auto) 0.0 K/uL (0.0-0.7) 08/25/18 13:50 Baso # (Auto) 0.0 K/uL (0.0-0.2) 08/25/18 13:50 PT 12.1 Seconds (9.8-13.1) 08/25/18 13:50 INR 1.1 08/25/18 13:50 APTT 34.3 Seconds (25.6-37.1) 08/25/18 13:50 Sodium 140 mmol/l (132-148) 09/01/18 05:45 Potassium 3.6 MMOL/L (3.6-5.0) 09/01/18 05:45 Chloride 105 mmol/L (98-107) 09/01/18 05:45 Carbon Dioxide 26 mmol/L (22-30) 09/01/18 05:45 Anion Gap 13 (10-20) 09/01/18 05:45 BUN 6 mg/dl (7-17) L 09/01/18 05:45 Creatinine 0.8 mg/dl (0.7-1.2) 09/01/18 05:45 Est GFR ( Amer) > 60 09/01/18 05:45 Est GFR (Non-Af Amer) > 60 09/01/18 05:45 Random Glucose 104 mg/dL (65-105) 09/01/18 05:45 Calcium 9.7 mg/dL (8.4-10.2) 09/01/18 05:45 Total Bilirubin 1.1 mg/dl (0.2-1.3) 08/25/18 13:50 AST 28 U/L (14-36) 08/25/18 13:50 ALT 45 U/L (9-52) 08/25/18 13:50 Alkaline Phosphatase 146 U/L (38-126) H 08/25/18 13:50 Total Protein 8.3 G/DL (6.3-8.2) H 08/25/18 13:50 Albumin 4.6 g/dL (3.5-5.0) 08/25/18 13:50 Globulin 3.7 gm/dL (2.2-3.9) 08/25/18 13:50 Albumin/Globulin Ratio 1.2 (1.0-2.1) 08/25/18 13:50 Lipase 131 U/L (23-300) 08/25/18 13:50 Discharge Exam - Head Exam Head Exam: ATRAUMATIC, NORMAL INSPECTION, NORMOCEPHALIC Discharge Plan - Follow Up Plan Condition: STABLE Disposition: HOME/ ROUTINE Instructions: Nausea and Vomiting, Adult (DC), Gastroparesis (Delayed Gastric Emptying) (DC), Acute Abdominal Pain (DC) Additional Instructions: follow up with Dr Moreno on thursday follow up with Dr. Cote 1-2weeks Referrals: Errol Moreno MD, PhD [Staff Provider] - Gena Heaton MD [Staff Provider] - Scottie Cote MD [Staff Provider] -
== END 2018-09-02 15:30 | disposition home or self-care (01) | DRG 392 ==
LOC: H.ER 12:36 → H.ERHOLD 16:30 → INTOOBSV 16:30 → H.MEDSURG1 18:30 → OBSVTOIN 08-27 11:20
PROVIDERS: ADMIT Internal Medicine Pulmonary Disease; ATTEND Internal Medicine Pulmonary Disease
DX: K31.84 Gastroparesis (principal); F11.20 Opioid dependence, uncomplicated; K22.4 Dyskinesia of esophagus; G89.29 Other chronic pain; Z79.891 Long term (current) use of opiate analgesic; K22.2 Esophageal obstruction; Z88.3 Allergy status to other anti-infective agents; Z88.0 Allergy status to penicillin